=== PATIENT | female | born 1960 | race African-American/Black ===

== ENCOUNTER 2017-01-08 14:56 | Emergency (ER) | payer OTHER ==
[~2017-01-08] VITALS: Ht 162.6 cm; Wt 81.0 kg
[~2017-01-08 14:56] MED LIST: FERR325T PO; PROT40TA PO; VITA100018 PO
[2017-01-08 15:02] VITALS: BP 168/78; PULSE 97; RESP 18; TEMP 98.7; O2SAT 98
--- NOTE | 2017-01-08 15:51 | PD ---
HPI Chief Complaint: Pain: Acute or Chronic Time Seen by Provider: 15:50 Travel History International Travel<30 days: No Contact w/Intl Traveler<30days: No Traveled to known affect area: No History of Present Illness HPI 56-year-old female with history of diabetes presents to the emergency department for evaluation of left neck pain that began this morning. Patient states that she was sitting in confucianism and turn her neck to the left to speak to her daughter when she had a sudden sharp pain in the left side of her neck. States that she has had this same pain in the neck since this morning. The pain is aggravated with movement. States she is unable to rotate her head to the left due to the pain. She has not taken anything for her symptoms so far. Denies any injury or trauma to her neck. Denies any numbness or tingling, weakness, headache, lightheadedness or dizziness, chest pain, shortness breath. No other complaints. PFSH Past Medical History Anemia: Yes Arthritis: Yes Heart Rhythm Problems: No Cancer: No Cardiac Catheterization: No Cardiovascular Problems: No High Cholesterol: Yes (denies) Congestive Heart Failure: No Diabetes: Yes Diminished Hearing: No GERD: Yes Hepatitis: No Hiatal Hernia: No Hypertension: No Musculoskeletal: Yes (RT KNEE ARTHROSCOPIC SURGERY 2004) Neurologic: No Respiratory: No Immunizations Current: Yes Myocardial Infarction: No Thyroid Disease: No Ectopic : Yes Tubal Ligation: Yes (1976-REVERSAL 1987) Past Surgical History Abdominal Surgery: No Cardiac Surgery: No Coronary Artery Bypass Graft: No Ear Surgery: No Endocrine Surgery: No Eye Surgery: No Genitourinary Surgery: No Gynecologic Surgery: Yes (TUBAL LIGATION AND REVERSAL, 3 MISCARRIAGES) Neurologic Surgery: No Oral Surgery: No Pacemaker: No Thoracic Surgery: No Other Surgery: Yes Social History Alcohol Use: No Tobacco Use: No Substance Use: No Allergies-Medications (Allergen,Severity, Reaction): Coded Allergies: Aspirin (Verified Adverse Reaction, Severe, STOMACH PAIN, 05/27/16) Compazine (Verified Adverse Reaction, Severe, MUSCLE SPASMS, 05/27/16) Darvocet-N 100 (Verified Adverse Reaction, Severe, STOMACH PAINS, 05/27/16) Erythromycin (Verified Adverse Reaction, Severe, STOMACH PAIN, 05/27/16) Tetracycline (Verified Adverse Reaction, Severe, STOMACHE PAINS, 7/1/16) Uncoded Allergies: pain medication (Allergy, Severe, suicidal ideation, 10/31/12) iv pain medication Reported Meds & Prescriptions Reported Meds & Active Scripts Active Protonix (Pantoprazole Sodium) 40 Mg Tabdr 40 Mg PO DAILY 30 Days Reported Vitamin D (Cholecalciferol) 1,000 Unit Tab 1,000 Unit PO WEEKLY Iron (Ferrous Sulfate) 325 Mg Tab 325 Mg PO TID Review of Systems Except as stated in HPI: all other systems reviewed are Neg Physical Exam Narrative GENERAL: Well-nourished and well-developed pleasant female patient in no acute distress. SKIN: Warm and dry. HEAD: Normocephalic and atraumatic. EYES: No injection, drainage, or hyphema noted. PERRLA. EOMI. ENT: No nasal drainage noted. Oropharynx is clear. NECK: Supple and the trachea is midline. The left sternocleidomastoid muscle is tight and tender to palpation. Patient reports unable to rotate her head to the left due to pain in this muscle. No midline cervical spine tenderness. CARDIOVASCULAR: Regular rate and rhythm. RESPIRATORY: Breath sounds are equal bilaterally with no accessory muscle use, wheezing, rhonchi, or crackles. MUSCULOSKELETAL: No obvious deformities, swelling, cyanosis, or ecchymosis is present throughout the upper and lower extremities. Patient has full range of motion without any signs of neurovascular compromise. Strength 5/5 upper and lower extremities and equal bilaterally. NEUROLOGICAL: Awake, alert, and oriented. Normal speech and gait. Cranial nerves are grossly intact. Data Data Last Documented VS Vital Signs Date Time Temp Pulse Resp B/P Pulse Ox O2 Delivery O2 Flow Rate FiO2 01/08/17 15:02 98.7 97 18 168/78 98 Room Air Orders Diazepam (Valium) (01/08/17 16:00) Ibuprofen (Motrin) (01/08/17 16:00) Splint Or Brace Apply/Monitor (01/08/17 15:50) Collar Soft Cervical (01/08/17 ) MDM Medical Decision Making Medical Screen Exam Complete: Yes Emergency Medical Condition: Yes Differential Diagnosis Torticollis versus cervical strain versus muscle spasm Narrative Course 56-year-old female presents to the emergency department for evaluation of left- sided neck pain. Patient is afebrile, vital signs are stable. She has torticollis and is experiencing a muscle spasm of the left sternocleidomastoid muscle. Discussed with the patient supportive care for her symptoms. She is concerned as she has a history of adverse reactions to medications and therefore she does not like to take medications. We'll give the patient a one- time dose of Valium 5 mg orally here in the ED to alleviate her muscle spasm and will observe her here after receiving the medicine to evaluate for any adverse reactions. She'll be discharged with ibuprofen and robaxin and instructions to apply warm compresses to the area. Diagnosis Primary Impression: Torticollis, acute Referrals: Primary Care Physician Patient Instructions: General Instructions, Spasmodic Torticollis (ED) Additional Instructions: Apply warm compresses to the area. Take medication as prescribed with food and a full glass of water. Follow-up with your Primary Care Physician. Return to the ED for any acute worsening of symptoms. Med/Other Pt SpecificInfo: Prescription(s) given Scripts Ibuprofen 800 Mg All282 Mg PO TID 7 Days Ref 0 Prov:Jovita Rodriguez MD 01/08/17 Methocarbamol (Robaxin)500 Mg Vgs647 Mg PO TID 5 Days Ref 0 Prov:Jovita Rodriguez MD 01/08/17 Disposition: 01 DISCHARGE HOME Condition: Stable Maria Elena Sims Jan 08, 2017 15:50
[2017-01-08] MEDS ORDERED: IBUPROFEN 800 MG TAB PO ONE (16:00)
[2017-01-08] MEDS ORDERED: DIAZEPAM 5 MG TAB PO ONE (16:00)
[2017-01-08] MEDS ORDERED: IBUP800T23 PO (16:39)
[2017-01-08] MEDS ORDERED: ROBA500T PO (16:39)
[2017-01-08] MEDS ORDERED: PROT40TA PO (17:13)
[2017-01-08] MEDS ORDERED: FERR325T PO (17:13)
[2017-01-08] MEDS ORDERED: D200CAP PO (17:14)
== END 2017-01-08 17:15 | disposition home or self-care (01) ==
LOC: NEPB 14:56
DX: M43.6 Torticollis (principal); D64.9 Anemia, unspecified; M19.90 Unspecified osteoarthritis, unspecified site; E11.9 Type 2 diabetes mellitus without complications; K21.9 Gastro-esophageal reflux disease without esophagitis
CPT/HCPCS: 99283; L0120

== ENCOUNTER 2017-04-08 00:16 | Emergency (ER) | payer OTHER ==
[~2017-04-08] VITALS: Ht 162.6 cm; Wt 90.0 kg
[~2017-04-08 00:16] MED LIST changes: +D200CAP PO; +IBUP800T23 PO; +ROBA500T PO
[2017-04-08 00:20] VITALS: BP 149/71; PULSE 97; RESP 15; TEMP 100; O2SAT 97
[2017-04-08] MEDS ORDERED: SODIUM CHLORIDE 0.9% FLUSH 10 ML FLUSH IV FLUSH PRN (00:45)
[2017-04-08] MEDS ORDERED: DIATRIZOATE MEGLUM/DIATRIZOATE SOD 9 ML CUP ONE (00:47)
--- NOTE | 2017-04-08 00:57 | PD ---
HPI Chief Complaint: Abdominal Pain Time Seen by Provider: 00:34 Travel History International Travel<30 days: No Contact w/Intl Traveler<30days: No Traveled to known affect area: No History of Present Illness HPI This is a 57-year-old female with a previous history of diverticulitis, who presents today with complaints of lower abdominal pain times one day. The patient denies any fevers although has a low-grade temperature here. She denies any chills but does state that she needs a lot of blankets. She denies any vomiting or nausea. She reports that her last bowel movement was normal. There is no dysuria, urgency. She does state she is urinating more than she normally does. There are no other complaints. PFSH Past Medical History Anemia: Yes Arthritis: Yes Heart Rhythm Problems: No Cancer: No Cardiac Catheterization: No Cardiovascular Problems: No High Cholesterol: Yes (denies) Congestive Heart Failure: No Diabetes: Yes (TYPE 2) Diminished Hearing: No GERD: Yes Hepatitis: No Hiatal Hernia: No Heparin Induced Thrombocytopen: No Hypertension: No Musculoskeletal: Yes (RT KNEE ARTHROSCOPIC SURGERY 2004) Neurologic: No Respiratory: No Immunizations Current: Yes Myocardial Infarction: No Thyroid Disease: No Ectopic : Yes Tubal Ligation: Yes (1976-REVERSAL 1987) Past Surgical History Abdominal Surgery: No Cardiac Surgery: No Coronary Artery Bypass Graft: No Ear Surgery: No Endocrine Surgery: No Eye Surgery: No Genitourinary Surgery: No Gynecologic Surgery: Yes (TUBAL LIGATION AND REVERSAL, 3 MISCARRIAGES) Neurologic Surgery: No Oral Surgery: No Pacemaker: No Thoracic Surgery: No Other Surgery: Yes Social History Alcohol Use: No Tobacco Use: No Substance Use: No Allergies-Medications (Allergen,Severity, Reaction): Coded Allergies: Parvin (Verified Allergy, Unknown, 04/08/17) Aspirin (Verified Adverse Reaction, Severe, STOMACH PAIN, 04/08/17) Compazine (Verified Adverse Reaction, Severe, MUSCLE SPASMS, 04/08/17) Darvocet-N 100 (Verified Adverse Reaction, Severe, STOMACH PAINS, 04/08/17) Erythromycin (Verified Adverse Reaction, Severe, STOMACH PAIN, 04/08/17) Tetracycline (Verified Adverse Reaction, Severe, STOMACHE PAINS, 04/08/17) Uncoded Allergies: pain medication (Allergy, Severe, suicidal ideation, 10/31/12) iv pain medication Reported Meds & Prescriptions Reported Meds & Active Scripts Active Reported D2000 Ultra Strength (Cholecalciferol) 2,000 Unit Cap 1,000 Units PO WEEKLY Ferrous Sulfate 325 Mg Tab 325 Mg PO DAILY Protonix (Pantoprazole Sodium) 40 Mg Tab 40 Mg PO DAILY Review of Systems Except as stated in HPI: all other systems reviewed are Neg General / Constitutional: Positive: Chills (patient reports she has cold), No : Fever HENT: No: Headaches, Lightheadedness Cardiovascular: No: Chest Pain or Discomfort, Diaphoresis Respiratory: No: Cough, Shortness of Breath Gastrointestinal: Positive: Abdominal Pain (bilateral lower, left greater than right.), No: Vomiting, Constipation, Changes in Bowel Habits Genitourinary: Positive: Other (reports possibly urinating more than normally.) , No: Urgency, Dysuria, Discharge, Vaginal Bleeding Musculoskeletal: No: Weakness, Pain Neurologic: No: Weakness, Dizziness, Syncope, Headache Physical Exam Narrative GENERAL: Well-nourished, well-developed patient, in no acute respiratory distress. SKIN: Focused skin assessment warm/dry. HEAD: Normocephalic/atraumatic. EYES: No scleral icterus. No injection or drainage. NECK: Supple, trachea midline. CARDIOVASCULAR: Regular rate and rhythm without murmurs, gallops, or rubs. RESPIRATORY: Breath sounds equal bilaterally. No accessory muscle use. GASTROINTESTINAL: Abdomen soft, nondistended. She has tenderness to palpation in the left lower abdominal area. There is voluntary guarding. No rebound. She reports minimal tenderness in her right lower quadrant on deep palpation. MUSCULOSKELETAL: No cyanosis, or edema. NEUROLOGICAL: Awake and alert. Cranial nerves II through XII intact. Motor grossly within normal limits. Five out of 5 muscle strength in all muscle groups. Normal speech. Data Data Last Documented VS Vital Signs Date Time Temp Pulse Resp B/P Pulse Ox O2 Delivery O2 Flow Rate FiO2 04/08/17 02:00 87 16 163/74 96 04/08/17 00:20 100.0 Room Air Orders Complete Blood Count With Diff (04/08/17 00:35) Comprehensive Metabolic Panel (04/08/17 00:35) Lipase (04/08/17 00:35) Urinalysis - C+S If Indicated (04/08/17 00:35) Ct Abd/Pel W Iv Contrast(Rout) (04/08/17 00:35) Iv Access Insert/Monitor (04/08/17 00:35) Ecg Monitoring (04/08/17 00:35) Oximetry (04/08/17 00:35) Sodium Chloride 0.9% Flush (Ns Flush) (04/08/17 00:45) Oral Contrast - Adult (04/08/17 00:39) Diatrizoate Liq (Md Graham Liq) (04/08/17 00:47) Iohexol 350 Inj (Omnipaque 350 Inj) (04/08/17 02:07) Metronidazole (Flagyl) (04/08/17 03:00) Ciprofloxacin (Cipro) (04/08/17 03:00) Acetamin-Hydrocod 325-5 Mg (Blount 5-325 (04/08/17 03:00) Labs Laboratory Tests Test 04/08/17 00:50 White Blood Count 9.4 TH/MM3 Red Blood Count 4.59 MIL/MM3 Hemoglobin 12.6 GM/DL Hematocrit 39.5 % Mean Corpuscular Volume 85.9 FL Mean Corpuscular Hemoglobin 27.5 PG Mean Corpuscular Hemoglobin 32.0 % Concent Red Cell Distribution Width 14.2 % Platelet Count 297 TH/MM3 Mean Platelet Volume 8.1 FL Neutrophils (%) (Auto) 70.0 % Lymphocytes (%) (Auto) 20.2 % Monocytes (%) (Auto) 8.5 % Eosinophils (%) (Auto) 1.1 % Basophils (%) (Auto) 0.2 % Neutrophils # (Auto) 6.6 TH/MM3 Lymphocytes # (Auto) 1.9 TH/MM3 Monocytes # (Auto) 0.8 TH/MM3 Eosinophils # (Auto) 0.1 TH/MM3 Basophils # (Auto) 0.0 TH/MM3 CBC Comment DIFF FINAL Differential Comment Urine Color YELLOW Urine Turbidity CLEAR Urine pH 7.0 Urine Specific [place] 1.019 Urine Protein NEG mg/dL Urine Glucose (UA) NEG mg/dL Urine Ketones NEG mg/dL Urine Occult Blood NEG Urine Nitrite NEG Urine Bilirubin NEG Urine Urobilinogen LESS THAN 2.0 MG/DL Urine Leukocyte Esterase NEG Urine RBC 2 /hpf Urine WBC 1 /hpf Urine Mucus FEW /lpf Microscopic Urinalysis Comment CULT NOT INDICATED Sodium Level 142 MEQ/L Potassium Level 3.7 MEQ/L Chloride Level 105 MEQ/L Carbon Dioxide Level 28.6 MEQ/L Anion Gap 8 MEQ/L Blood Urea Nitrogen 14 MG/DL Creatinine 0.93 MG/DL Estimat Glomerular Filtration 75 ML/MIN Rate Random Glucose 133 MG/DL Calcium Level 8.7 MG/DL Total Bilirubin 0.5 MG/DL Aspartate Amino Transf 19 U/L (AST/SGOT) Alanine Aminotransferase 18 U/L (ALT/SGPT) Alkaline Phosphatase 97 U/L Total Protein 7.6 GM/DL Albumin 3.7 GM/DL Lipase 172 U/L MDM Medical Decision Making Medical Screen Exam Complete: Yes Emergency Medical Condition: Yes Differential Diagnosis Diverticulitis versus cystitis versus pyelonephritis Narrative Course 57-year-old female presents with abdominal pain times one day. Patient denies any fevers but does state that she's felt cold at times. CT scan shows evidence of diverticulitis. This is in the same area that she had previous diverticulitis. I discussed with the patient that we'll start her on Cipro and Flagyl. She is also given a prescription for Lortab for pain. She does see Dr. Zacarias, GI doctor, who we will recommend she see her for follow up. She is instructed to return if she does any worsening pain, fevers chills, nausea vomiting diarrhea, or any other reason the concerns her. Diagnosis Primary Impression: Diverticulitis large intestine w/o perforation or abscess w/bleeding Additional Impression: History of diabetes mellitus Patient Instructions: Narcotic given in the ED Additional Instructions: Return if feeling worse. Follow up with primary care doctor and GI physician. Med/Other Pt SpecificInfo: Prescription(s) given Scripts Hydrocodone-Acetaminophen (Lortab)5-325 Mg Tab1 Tab PO Q6H PRN (PAIN) #15 TAB Ref 0 Prov:Michael Silvestre MD 04/08/17 Metronidazole (Flagyl)500 Mg Qpw625 Mg PO TID #30 TAB Ref 0 Prov:Michael Silvestre MD 04/08/17 Ciprofloxacin (Cipro)500 Mg Uxa828 Mg PO BID #20 TAB Ref 0 Prov:Michael Silvestre MD 04/08/17 Disposition: 01 DISCHARGE HOME Condition: Stable Michael Silvestre MD April 08, 2017 00:56
[2017-04-08 01:10] LABS: BLOOD, URINE NEG (NEG); COMMENT (UR) CULT NOT INDICATED; CULTURE IF INDICATED CULT NOT INDICATED; GLUCOSE,URINE NEG (NEG); KETONE, URINE NEG (NEG); MUCUS URINE FEW /lpf (OCC); NITRITE,URINE NEG (NEG); URINE COLOR YELLOW (YELLW/STRAW)
[2017-04-08 01:28] LABS: AUTOMATED NEUTROPHIL # 6.6 TH/MM3 (1.8-7.7); BASOPHIL % 0.2 % (0.0-2.0); EOSINOPHIL # 0.1 TH/MM3 (0-0.4); EOSINOPHIL % 1.1 % (0.0-4.0); HEMATOCRIT 39.5 % (35.0-46.0); HEMO FLAGS DIFF FINAL; LYMPH % 20.2 % (9.0-44.0); LYMPHOCYTE # 1.9 TH/MM3 (1.0-4.8); MEAN CELL VOLUME 85.9 FL (80.0-100.0); MEAN CORPUSCULAR HEMOGLOBIN 27.5 PG (27.0-34.0); MONO % 8.5 % (0.0-8.0); PLATELET COUNT 297 TH/MM3 (150-450); RED BLOOD COUNT 4.59 MIL/MM3 (4.00-5.30); RED CELL DISTRIBUTION WIDTH 14.2 % (11.6-17.2); WHITE BLOOD COUNT 9.4 TH/MM3 (4.0-11.0)
[2017-04-08 01:35] LABS: ALKALINE PHOSPHATASE 97 U/L (45-117); TOTAL BILIRUBIN ADULT 0.5 MG/DL (0.2-1.0)
[2017-04-08 01:36] LABS: ALT (GPT) 18 U/L (10-53); ANION GAP 8 MEQ/L (5-15); AST (GOT) 19 U/L (15-37); BICARBONATE 28.6 MEQ/L (21.0-32.0); BLOOD UREA NITROGEN 14 MG/DL (7-18); CHLORIDE 105 MEQ/L (98-107); GLOMERULAR FILTRATION RATE 75 ML/MIN (>89); POTASSIUM 3.7 MEQ/L (3.5-5.1); SODIUM (NA) 142 MEQ/L (136-145)
[2017-04-08 02:00] VITALS: BP 163/74; PULSE 87; RESP 16; O2SAT 96
[2017-04-08] MEDS ORDERED: IOHEXOL 350 MG/ML 10 ML VIAL (for RAD DIAG) IV ONE (02:07)
--- NOTE | 2017-04-08 02:27 | RADRPT ---
EXAM DATE/TIME: 04/08/2017 02:06 CORRECTION Corrected on: April 08, 2017; [facility] COMPARISON: CT ABDOMEN & PELVIS W CONTRAST, November 28, 2015, 7:27. INDICATIONS : Abdominal pain. IV CONTRAST: 100 cc Omnipaque 350 (iohexol) IV ORAL CONTRAST: Prescribed oral contrast ingested. RADIATION DOSE: 11.96 CTDIvol (mGy) MEDICAL HISTORY : Diverticulitis. Diabetes mellitus type 2. Gastroesophageal reflux disease. SURGICAL HISTORY : None. ENCOUNTER: Initial ACUITY: 1 day PAIN SCALE: 10/10 LOCATION: abdomen TECHNIQUE: Volumetric scanning of the abdomen and pelvis was performed. Using automated exposure control and ad justment of the mA and/or kV according to patient size, radiation dose was kept as low as reasonably achievable to obtain optimal diagnostic quality images. FINDINGS: LOWER LUNGS: The visualized lower lungs are clear. LIVER: Homogeneous density. Stable hepatic cyst measuring 3 cm in the left lobe. There is no dilation of th e biliary tree. No calcified gallstones. SPLEEN: Normal size without lesion. PANCREAS: Within normal limits. KIDNEYS: Normal in size and shape. There is no mass, stone or hydronephrosis. ADRENAL GLANDS: Stable left adrenal mass measuring approximately 2.4 cm. Right adrenal gland is stable and unremarkab le. VASCULAR: There is no aortic aneurysm. BOWEL/MESENTERY: Bowel gas pattern is within normal limits. There is focal inflammatory changes involving the distal d escending colon in the left lower quadrant characteristic of focal diverticulitis. No free fluid or l oculated fluid collections are seen to suggest an abscess. This finding was present on the prior exam ination. No evidence of free air. No free fluid. ABDOMINAL WALL: Within normal limits. RETROPERITONEUM: There is no lymphadenopathy. BLADDER: No wall thickening or mass. REPRODUCTIVE: Bulky fibroid uterus. Stable. INGUINAL: There is no lymphadenopathy or hernia. MUSCULOSKELETAL: Within normal limits for patient age. CONCLUSION: 1. There is focal inflammatory changes involving the distal descending colon and the left lower quadr ant characteristic for focal diverticulitis. No free air or abscess is seen at this time. This is the same location as the prior examination from 11/28/2015. Consider direct visualization by colonoscopy a fter appropriate medical therapy to exclude an underlying mucosal lesion. 2. Stable left hepatic cyst. 3. Stable left adrenal mass. 4. Stable bulky fibroid uterus. Kenyon Ho MD on April 08, 2017 at 2:20 Board Certified Radiologist. This report was verified electronically. Kenyon Ho MD on April 08, 2017 at 2:28 Board Certified Radiologist. This report was verified electronically.
[2017-04-08] MEDS ORDERED: CIPR-9 PO (02:52)
[2017-04-08] MEDS ORDERED: METR-1 PO (02:52)
[2017-04-08] MEDS ORDERED: HYDR-3533 PO (02:52)
[2017-04-08] MEDS ORDERED: ACETAMINOPHEN/HYDROcodone 325 MG/5 MG TAB PO ONE (03:00)
[2017-04-08] MEDS ORDERED: CIPROFLOXACIN 500 MG TAB PO ONE (03:00)
[2017-04-08] MEDS ORDERED: metroNIDAZOLE 500 MG TAB PO ONE (03:00)
== END 2017-04-08 03:30 | disposition home or self-care (01) ==
LOC: NEPE 00:16
DX: K57.32 Diverticulitis of large intestine without perforation or abscess without bleeding (principal); E11.9 Type 2 diabetes mellitus without complications; D64.9 Anemia, unspecified
CPT/HCPCS: 74177; 80053; 81001; 83690; 85025; 99284; Q9963; Q9967

== ENCOUNTER 2017-05-31 23:26 | Emergency (ER) | payer OTHER ==
[~2017-05-31] VITALS: Ht 162.6 cm; Wt 89.0 kg
[~2017-05-31 23:26] MED LIST changes: +CIPR-9 PO; +HYDR-3533 PO; -IBUP800T23 PO; +METR-1 PO; -ROBA500T PO; -VITA100018 PO
[2017-05-31 23:28] VITALS: BP 158/84; PULSE 86; RESP 16; TEMP 98.5; O2SAT 99
[2017-06-01 02:19] VITALS: BP 190/90; PULSE 81; RESP 18; O2SAT 100
[2017-06-01] MEDS ORDERED: VITA100064 PO (02:23)
[2017-06-01 02:24] VITALS: BP 166/73
[2017-06-01] MEDS ORDERED: SACC1CAP3 PO (02:24)
[2017-06-01] MEDS ORDERED: LIDOCAINE VISCOUS 2% SOLN 15 ML UDC PO ONE (02:45)
[2017-06-01] MEDS ORDERED: ONDANSETRON HCL 4 MG/2 ML VIAL IVP ONE (02:45)
[2017-06-01] MEDS ORDERED: SODIUM CHLORIDE 0.9% FLUSH 10 ML FLUSH IV FLUSH PRN (02:45)
[2017-06-01] MEDS ORDERED: ALUMINUM/MAGNESIUM/SIMETH 30 ML CUP PO ONE (02:45)
[2017-06-01 02:52] VITALS: O2SAT 98
[2017-06-01 03:00] LABS: AUTOMATED NEUTROPHIL # 5.2 TH/MM3 (1.8-7.7); BASOPHIL % 0.2 % (0.0-2.0); EOSINOPHIL % 0.6 % (0.0-4.0); HEMATOCRIT 43.1 % (35.0-46.0); HEMO FLAGS DIFF FINAL; LYMPH % 23.7 % (9.0-44.0); LYMPHOCYTE # 1.8 TH/MM3 (1.0-4.8); MEAN CELL VOLUME 85.6 FL (80.0-100.0); MEAN CORPUSCULAR HEMOGLOBIN 27.8 PG (27.0-34.0); MEAN CORPUSCULAR HGB CONC 32.4 % (32.0-36.0); MONO % 6.6 % (0.0-8.0); NEUT % 68.9 % (16.0-70.0); PLATELET COUNT 339 TH/MM3 (150-450); RED BLOOD COUNT 5.04 MIL/MM3 (4.00-5.30); RED CELL DISTRIBUTION WIDTH 13.8 % (11.6-17.2); WHITE BLOOD COUNT 7.6 TH/MM3 (4.0-11.0)
[2017-06-01 03:14] LABS: APTT (PATIENT) 28.7 SEC (24.3-30.1); PROTHROMBIN TIME - PATIENT 10.7 SEC (9.8-11.6)
--- NOTE | 2017-06-01 03:25 | RADRPT ---
EXAM DATE/TIME: 06/01/2017 02:37 [facility] COMPARISON: CHEST SINGLE AP, October 26, 2015, 3:00. INDICATIONS : Lower chest discomfort. MEDICAL HISTORY : Diabetes mellitus type II. SURGICAL HISTORY : None. ENCOUNTER: Initial ACUITY: 1 day PAIN SCORE: 2/10 LOCATION: Bilateral lower chest FINDINGS: A single view of the chest demonstrates the lungs to be symmetrically aerated without evidence of mas s, infiltrate or effusion. The cardiomediastinal contours are unremarkable. Osseous structures are intact. CONCLUSION: No acute disease. Yair Carrington MD on June 01, 2017 at 3:23 Board Certified Radiologist. This report was verified electronically.
[2017-06-01 03:26] LABS: ALT (GPT) 28 U/L (10-53); ANION GAP 8 MEQ/L (5-15); AST (GOT) 21 U/L (15-37); BICARBONATE 31.3 MEQ/L (21.0-32.0); BLOOD UREA NITROGEN 7 MG/DL (7-18); CHLORIDE 104 MEQ/L (98-107); GLOMERULAR FILTRATION RATE 76 ML/MIN (>89); POTASSIUM 3.5 MEQ/L (3.5-5.1); SODIUM (NA) 143 MEQ/L (136-145)
[2017-06-01 03:29] LABS: ALKALINE PHOSPHATASE 103 U/L (45-117); TOTAL BILIRUBIN ADULT 0.9 MG/DL (0.2-1.0)
--- NOTE | 2017-06-01 04:37 | PD ---
HPI Chief Complaint: GI Complaint Time Seen by Provider: 02:22 Travel History International Travel<30 days: No Contact w/Intl Traveler<30days: No Traveled to known affect area: No History of Present Illness HPI This is a 57 year old female presents to the emergency department with a complaint of epigastric fullness and feeling like something is moving upwards into her chest. She had endoscopy and colonoscopy with esophageal dilation yesterday morning. She began having nausea and pain, called her physician home economics teacher and was told to take extra tums. When this didn't work she attempted to call again and couldn't get through so came to the ER. She states she had minimal blood streaking in the emesis. No sob, no chest pain, no fever, no diarrhea. PFSH Past Medical History Anemia: Yes Arthritis: Yes Heart Rhythm Problems: No Cancer: No Cardiac Catheterization: No Cardiovascular Problems: No High Cholesterol: Yes (denies) Congestive Heart Failure: No Diabetes: Yes (TYPE 2) Patient Takes Glucophage: No Diminished Hearing: No GERD: Yes Hepatitis: No Hiatal Hernia: No Heparin Induced Thrombocytopen: No Hypertension: No Medical other: Yes (GERD,ARTHRITIS, LOW BACK PAIN, ANEMIA) Musculoskeletal: Yes (RT KNEE ARTHROSCOPIC SURGERY 2004) Neurologic: No Respiratory: No Immunizations Current: Yes Myocardial Infarction: No Thyroid Disease: No Influenza Vaccination: No Ectopic : Yes Tubal Ligation: Yes (1976-REVERSAL 1987) Past Surgical History Abdominal Surgery: No Cardiac Surgery: No Coronary Artery Bypass Graft: No Ear Surgery: No Endocrine Surgery: No Eye Surgery: No Genitourinary Surgery: No Neurologic Surgery: No Oral Surgery: No Pacemaker: No Thoracic Surgery: No Other Surgery: Yes (ENDOSCOPY AND COLONOSCOPY 05/31/17) Family History Family Myocardial Infarction: Yes Social History Alcohol Use: No Tobacco Use: No Substance Use: No Allergies-Medications (Allergen,Severity, Reaction): Coded Allergies: Parvin (Verified Allergy, Unknown, 06/01/17) Aspirin (Verified Adverse Reaction, Severe, STOMACH PAIN, 06/01/17) Compazine (Verified Adverse Reaction, Severe, MUSCLE SPASMS, 06/01/17) Darvocet-N 100 (Verified Adverse Reaction, Severe, STOMACH PAINS, 06/01/17) Erythromycin (Verified Adverse Reaction, Severe, STOMACH PAIN, 06/01/17) Tetracycline (Verified Adverse Reaction, Severe, STOMACHE PAINS, 06/01/17) Uncoded Allergies: pain medication (Allergy, Severe, suicidal ideation, 10/31/12) iv pain medication Reported Meds & Prescriptions Reported Meds & Active Scripts Active Lidocaine Viscous Liq 2 % Liqd 5 Ml SWISH-SWAL QID PRN Sucralfate Liq (Sucralfate) 1 Gm/10 Ml Kiana 1 Gm PO TID 7 Days on empty stomach Reported Probiotic (Saccharomyces Boulardii) 250 Mg Cap 250 Mg PO ONCE Vitamin D (Cholecalciferol) 1,000 Unit Tab 1,000 Units PO DAILY Protonix (Pantoprazole Sodium) 40 Mg Tab 40 Mg PO DAILY Review of Systems Except as stated in HPI: all other systems reviewed are Neg Physical Exam Narrative GENERAL: WD/WN in nad SKIN: Warm and dry. HEAD: Atraumatic. Normocephalic. EYES: Pupils equal and round. No scleral icterus. No injection or drainage. ENT: No nasal bleeding or discharge. Mucous membranes pink and moist. NECK: Trachea midline. No JVD. CARDIOVASCULAR: Regular rate and rhythm. 2+ bilateral equal pulses in all four extremities, No MGR. RESPIRATORY: No accessory muscle use. Clear to auscultation. Breath sounds equal bilaterally. GASTROINTESTINAL: Abdomen soft, non-tender, nondistended. Hepatic and splenic margins not palpable. MUSCULOSKELETAL: Extremities without clubbing, cyanosis, or edema. No obvious deformities. NEUROLOGICAL: Awake and alert. No obvious cranial nerve deficits. Motor grossly within normal limits. Five out of 5 muscle strength in the arms and legs. Normal speech. PSYCHIATRIC: Appropriate mood and affect; insight and judgment normal. Data Data Last Documented VS Vital Signs Date Time Temp Pulse Resp B/P Pulse Ox O2 Delivery O2 Flow Rate FiO2 06/01/17 05:23 61 18 136/82 98 Room Air 05/31/17 23:28 98.5 Orders Complete Blood Count With Diff (06/01/17 02:37) Comprehensive Metabolic Panel (06/01/17 02:37) Prothrombin Time / Inr (Pt) (06/01/17 02:37) Act Partial Throm Time (Ptt) (06/01/17 02:37) Iv Access Insert/Monitor (06/01/17 02:37) Ecg Monitoring (06/01/17 02:37) Oximetry (06/01/17 02:37) Ondansetron Inj (Zofran Inj) (06/01/17 02:45) Sodium Chloride 0.9% Flush (Ns Flush) (06/01/17 02:45) Electrocardiogram (06/01/17 02:37) Al-Mag Hy-Si 40-40-4 Mg/Ml Liq (Mag-Al P (06/01/17 02:45) Lidocaine 2% Viscous (Xylocaine 2% Visco (06/01/17 02:45) Troponin I (06/01/17 02:37) Chest, Single Ap (06/01/17 ) Ct Abd/Pel W Iv Contrast(Rout) (06/01/17 ) Iohexol 350 Inj (Omnipaque 350 Inj) (06/01/17 04:39) Lidocaine 2% Viscous (Xylocaine 2% Visco (06/01/17 05:30) Labs Laboratory Tests Test 06/01/17 02:40 White Blood Count 7.6 TH/MM3 Red Blood Count 5.04 MIL/MM3 Hemoglobin 14.0 GM/DL Hematocrit 43.1 % Mean Corpuscular Volume 85.6 FL Mean Corpuscular Hemoglobin 27.8 PG Mean Corpuscular Hemoglobin 32.4 % Concent Red Cell Distribution Width 13.8 % Platelet Count 339 TH/MM3 Mean Platelet Volume 8.5 FL Neutrophils (%) (Auto) 68.9 % Lymphocytes (%) (Auto) 23.7 % Monocytes (%) (Auto) 6.6 % Eosinophils (%) (Auto) 0.6 % Basophils (%) (Auto) 0.2 % Neutrophils # (Auto) 5.2 TH/MM3 Lymphocytes # (Auto) 1.8 TH/MM3 Monocytes # (Auto) 0.5 TH/MM3 Eosinophils # (Auto) 0.0 TH/MM3 Basophils # (Auto) 0.0 TH/MM3 CBC Comment DIFF FINAL Differential Comment Prothrombin Time 10.7 SEC Prothromb Time International 1.0 RATIO Ratio Activated Partial 28.7 SEC Thromboplast Time Sodium Level 143 MEQ/L Potassium Level 3.5 MEQ/L Chloride Level 104 MEQ/L Carbon Dioxide Level 31.3 MEQ/L Anion Gap 8 MEQ/L Blood Urea Nitrogen 7 MG/DL Creatinine 0.92 MG/DL Estimat Glomerular Filtration 76 ML/MIN Rate Random Glucose 117 MG/DL Calcium Level 9.1 MG/DL Total Bilirubin 0.9 MG/DL Aspartate Amino Transf 21 U/L (AST/SGOT) Alanine Aminotransferase 28 U/L (ALT/SGPT) Alkaline Phosphatase 103 U/L Troponin I LESS THAN 0.02 NG/ML Total Protein 8.4 GM/DL Albumin 4.2 GM/DL [facility] Medical Decision Making Medical Screen Exam Complete: Yes Emergency Medical Condition: Yes Interpretation(s) EKG shows normal sinus rhythm left axis deviation, normal R-wave progression. No concerning ST segment changes. Intervals within normal limits. This is a borderline EKG. Differential Diagnosis Esophageal tear, bowel perforation, acute abdomen seems unlikely, esophagitis, normal post procedural period, anemia, ACS highly unlikely. Narrative Course This is a 57 year old female POD1 from endoscopy, colonoscopy and esophageal dilation. Reports to the er that she has been having nausea and vomiting and epigastric discomfort. initial workup negative. CT negative. Had one low volume emesis in ed with minimal blood streaking. Patient feeling better after GI cocktail but wearing off, placed on sucrafate, lidocaine jelly script. Instructions to follow up with GI doctor by phone today. Diagnosis Primary Impression: Epigastric discomfort Additional Instructions: Call Dr. Boston or Dr. Mcneill today for further instructions. Med/Other Pt SpecificInfo: Prescription(s) given Scripts Lidocaine Viscous Liq 2 % Liqd5 Ml SWISH-SWAL QID PRN (PAIN) #1 BOTTLE Ref 0 Prov:Terrence Jimenez MD 06/01/17 Sucralfate Liq 1 Gm/10 Ml Sus1 Gm PO TID 7 Days Ref 0 on empty stomach Prov:Terrence Jimenez MD 06/01/17 Disposition: 01 DISCHARGE HOME Condition: Stable Terrence Jimenez MD Jun 01, 2017 04:37
[2017-06-01] MEDS ORDERED: IOHEXOL 350 MG/ML 10 ML VIAL (for RAD DIAG) IV ONE (04:39)
--- NOTE | 2017-06-01 05:12 | RADRPT ---
EXAM DATE/TIME: 06/01/2017 04:25 [facility] COMPARISON: CT ABDOMEN & PELVIS W CONTRAST, April 08, 2017, 2:06. INDICATIONS : Upper abdominal pain post endoscopy and colonoscopy today. IV CONTRAST: 94 cc Omnipaque 350 (iohexol) IV ORAL CONTRAST: No oral contrast ingested. RADIATION DOSE: 12.14 CTDIvol (mGy) MEDICAL HISTORY : Diverticulitis. Diabetes mellitus type 2. Gastroesophageal reflux disease. SURGICAL HISTORY : None. ENCOUNTER: Initial ACUITY: 1 day PAIN SCALE: 8/10 LOCATION: Bilateral upper quadrant TECHNIQUE: Volumetric scanning of the abdomen and pelvis was performed. Using automated exposure control and ad justment of the mA and/or kV according to patient size, radiation dose was kept as low as reasonably achievable to obtain optimal diagnostic quality images. DICOM format image data is available electro nically for review and comparison. FINDINGS: LOWER LUNGS: The visualized lower lungs are clear. LIVER: Homogeneous density without lesion. There is no dilation of the biliary tree. No calcified gallston es. SPLEEN: Normal size without lesion. PANCREAS: Within normal limits. KIDNEYS: Normal in size and shape. There is no mass, stone or hydronephrosis. ADRENAL GLANDS: Stable left adrenal lesion. Right adrenal gland is normal. VASCULAR: There is no aortic aneurysm. BOWEL/MESENTERY: The stomach, small bowel, and colon demonstrate no acute abnormality. There is no free intraperitone al air or fluid. ABDOMINAL WALL: Within normal limits. RETROPERITONEUM: There is no lymphadenopathy. BLADDER: No wall thickening or mass. REPRODUCTIVE: Heterogeneous uterus. INGUINAL: There is no lymphadenopathy or hernia. MUSCULOSKELETAL: Within normal limits for patient age. CONCLUSION: 1. Diverticulosis without diverticulitis. 2. Heterogeneous uterus, stable. 3. Stable hepatic cysts. 4. Stable left adrenal lesion. Yair Carrington MD on June 01, 2017 at 5:08 Board Certified Radiologist. This report was verified electronically.
[2017-06-01 05:23] VITALS: BP 136/82; PULSE 61; RESP 18; O2SAT 98
[2017-06-01] MEDS ORDERED: LIDOCAINE VISCOUS 2% SOLN 15 ML UDC SWISH-SWAL ONE (05:30)
[2017-06-01] MEDS ORDERED: SUCR1S PO (05:45)
[2017-06-01] MEDS ORDERED: LIDO1SOL8 SWISH-SWAL (05:45)
--- NOTE | 2017-06-01 19:05 | EKG ---
Date Performed: 06/01/2017 Time Performed: 02:49:57 PTAGE: 57 years EKG: Sinus rhythm BORDERLINE LEFT AXIS DEVIATION Compared to previous tracing, there's been an increace in the anterio r T wave changes associated with the incomplete Right bundle branch block, but otherwise no significa nt change BORDERLINE ECG NO PREVIOUS TRACING DOCTOR: Hermelinda Torres Interpretating Date/Time 06/01/2017 19:03:16
== END 2017-06-01 06:43 | disposition home or self-care (01) ==
LOC: NEPE 23:26
DX: R10.13 Epigastric pain (principal); E11.9 Type 2 diabetes mellitus without complications; K21.9 Gastro-esophageal reflux disease without esophagitis
CPT/HCPCS: 71010; 74177; 80053; 84484; 85025; 85610; 85730; 93005; 96374; 99285; J2405; Q9967

== ENCOUNTER 2018-03-24 13:25 | Observation (INO) | payer OTHER ==
[2018-03-24] VITALS (7 sets, daily range): BP systolic 130–170; BP diastolic 68–83; PULSE 75–91; RESP 14–20; TEMP 98.1–98.8; O2SAT 97–100
[~2018-03-24] VITALS: Ht 162.6 cm; Wt 82.0 kg
[~2018-03-24 13:25] MED LIST changes: -CIPR-9 PO; -D200CAP PO; -FERR325T PO; -HYDR-3533 PO; +LIDO1SOL8 SWISH-SWAL; -METR-1 PO; +SACC1CAP3 PO; +SUCR1S PO; +VITA100064 PO
[2018-03-24] MEDS ORDERED: OMEGCAP PO (13:47)
--- NOTE | 2018-03-24 14:03 | PD ---
HPI Chief Complaint: Pain: Acute or Chronic Time Seen by Provider: 13:50 Travel History International Travel<30 days: No Contact w/Intl Traveler<30days: No Traveled to known affect area: No History of Present Illness HPI 58-year-old female complains of chest pain. Patient states that she has intermittent substernal chest pain since this morning. Patient states that the chest pain is substernal pressure without radiation. Patient states that the chest pain usually lasted about 2 minutes and resolved completely. Patient states that the chest pain is not associated with exertion. Patient states that she vomited once with a chest pain. Patient states that she has intermittent diaphoresis with chest pain. Patient denies any palpitation. Patient denies any coughing congestion fever chills. Patient states that she has history of reflux symptom has been taking omeprazole for that. Patient denies history of CAD. Patient denies history hypertension, diabetes, hyperlipidemia. Patient is a non-smoker. Patient denies family history of heart disease. Patient denies any chest pain now. PFSH Past Medical History Anemia: Yes Arthritis: Yes Heart Rhythm Problems: No Cancer: No Cardiac Catheterization: No Cardiovascular Problems: No High Cholesterol: Yes (denies) Congestive Heart Failure: No Diabetes: Yes Patient Takes Glucophage: No Diminished Hearing: No GERD: Yes Hepatitis: No Hiatal Hernia: No Heparin Induced Thrombocytopen: No Hypertension: No Medical other: Yes (GERD,ARTHRITIS, LOW BACK PAIN, ANEMIA) Musculoskeletal: Yes (RT KNEE ARTHROSCOPIC SURGERY 2004) Neurologic: No Respiratory: No Immunizations Current: Yes Myocardial Infarction: No Thyroid Disease: No ?: Not Ectopic : Yes Tubal Ligation: Yes (1976-REVERSAL 1987) Past Surgical History Abdominal Surgery: No Cardiac Surgery: No Coronary Artery Bypass Graft: No Ear Surgery: No Endocrine Surgery: No Eye Surgery: No Genitourinary Surgery: No Neurologic Surgery: No Oral Surgery: No Pacemaker: No Thoracic Surgery: No Other Surgery: Yes (ENDOSCOPY AND COLONOSCOPY 05/31/17) Family History Family Myocardial Infarction: Yes Social History Alcohol Use: No Tobacco Use: No Substance Use: No Allergies-Medications (Allergen,Severity, Reaction): Coded Allergies: fexofenadine (Unverified Allergy, Unknown, 03/24/18) acetaminophen (Unverified Adverse Reaction, Severe, STOMACH PAINS, 03/24/18 ) aspirin (Unverified Adverse Reaction, Severe, STOMACH PAIN, 03/24/18) doxycycline (Unverified Adverse Reaction, Severe, STOMACHE PAINS, 03/24/18) erythromycin base (Unverified Adverse Reaction, Severe, STOMACH PAIN, 03/24) minocycline (Unverified Adverse Reaction, Severe, STOMACHE PAINS, 03/24/18) prochlorperazine (Unverified Adverse Reaction, Severe, MUSCLE SPASMS, 03/24) propoxyphene (Unverified Adverse Reaction, Severe, STOMACH PAINS, 03/24/18) tigecycline (Unverified Adverse Reaction, Severe, STOMACHE PAINS, 03/24/18) Uncoded Allergies: pain medication (Allergy, Severe, suicidal ideation, 10/31/12) iv pain medication Reported Meds & Prescriptions Reported Meds & Active Scripts Active Reported [place]-3 Fish Oil/Vitamin (Fish Oil-Cholecalciferol) 1,000-1,000 Mg Cap 1 Cap PO DAILY Probiotic (Saccharomyces Boulardii) 250 Mg Cap 250 Mg PO ONCE Vitamin D3 (Cholecalciferol) 1,000 Unit Tab 1,000 Units PO DAILY Protonix (Pantoprazole Sodium) 40 Mg Tab 40 Mg PO DAILY Review of Systems General / Constitutional: No: Fever Eyes: No: Visual changes HENT: No: Headaches Cardiovascular: Positive: Chest Pain or Discomfort Respiratory: No: Shortness of Breath Gastrointestinal: No: Abdominal Pain Genitourinary: No: Dysuria Musculoskeletal: No: Pain Skin: No Rash Neurologic: No: Weakness Psychiatric: No: Depression Endocrine: No: Polydipsia Hematologic/Lymphatic: No: Easy Bruising Physical Exam Narrative GENERAL: Well-nourished, well-developed patient. SKIN: Focused skin assessment warm/dry. HEAD: Normocephalic. EYES: No scleral icterus. No injection or drainage. NECK: Supple, trachea midline. No JVD or lymphadenopathy. CARDIOVASCULAR: Regular rate and rhythm without murmurs, gallops, or rubs. RESPIRATORY: Breath sounds equal bilaterally. No accessory muscle use. GASTROINTESTINAL: Abdomen soft, non-tender, nondistended. MUSCULOSKELETAL: No cyanosis, or edema. BACK: Nontender without obvious deformity. No CVA tenderness. Neurologic exam normal. Data Data Last Documented VS Vital Signs Date Time Temp Pulse Resp B/P (MAP) Pulse Ox O2 Delivery O2 Flow Rate FiO2 03/24/18 13:38 80 18 148/78 (101) 100 Room Air 03/24/18 13:28 98.8 Orders Orders Electrocardiogram (03/24/18 13:59) Complete Blood Count With Diff (03/24/18 13:59) Comprehensive Metabolic Panel (03/24/18 13:59) Creatine Kinase (Cpk) (03/24/18 13:59) Troponin I (03/24/18 13:59) Prothrombin Time / Inr (Pt) (03/24/18 13:59) Act Partial Throm Time (Ptt) (03/24/18 13:59) Urinalysis - C+S If Indicated (03/24/18 13:59) Chest, Single Ap (03/24/18 13:59) Iv Access Insert/Monitor (03/24/18 13:59) Ecg Monitoring (03/24/18 13:59) Oximetry (03/24/18 13:59) Labs Laboratory Tests Test 03/24/18 14:15 White Blood Count 7.4 TH/MM3 Red Blood Count 4.51 MIL/MM3 Hemoglobin 13.0 GM/DL Hematocrit 39.7 % Mean Corpuscular Volume 88.0 FL Mean Corpuscular Hemoglobin 28.8 PG Mean Corpuscular Hemoglobin Concent 32.7 % Red Cell Distribution Width 14.1 % Platelet Count 337 TH/MM3 Mean Platelet Volume 7.6 FL Neutrophils (%) (Auto) 67.4 % Lymphocytes (%) (Auto) 23.7 % Monocytes (%) (Auto) 7.6 % Eosinophils (%) (Auto) 1.1 % Basophils (%) (Auto) 0.2 % Neutrophils # (Auto) 5.0 TH/MM3 Lymphocytes # (Auto) 1.8 TH/MM3 Monocytes # (Auto) 0.6 TH/MM3 Eosinophils # (Auto) 0.1 TH/MM3 Basophils # (Auto) 0.0 TH/MM3 CBC Comment DIFF FINAL Differential Comment Prothrombin Time 10.0 SEC Prothromb Time International Ratio 1.0 RATIO Activated Partial Thromboplast Time 25.0 SEC Urine Color LIGHT-YELLOW Urine Turbidity CLEAR Urine pH 6.0 Urine Specific [place] 1.004 Urine Protein NEG mg/dL Urine Glucose (UA) NEG mg/dL Urine Ketones NEG mg/dL Urine Occult Blood NEG Urine Nitrite NEG Urine Bilirubin NEG Urine Urobilinogen LESS THAN 2.0 MG/DL Urine Leukocyte Esterase NEG Urine RBC LESS THAN 1 /hpf Urine WBC 1 /hpf Urine Squamous Epithelial Cells 1 /hpf Urine Bacteria RARE /hpf Microscopic Urinalysis Comment CULT NOT INDICATED Blood Urea Nitrogen 11 MG/DL Creatinine 0.91 MG/DL Random Glucose 135 MG/DL Total Protein 7.4 GM/DL Albumin 3.4 GM/DL Calcium Level 8.4 MG/DL Alkaline Phosphatase 79 U/L Aspartate Amino Transf (AST/SGOT) 19 U/L Alanine Aminotransferase (ALT/SGPT) 26 U/L Total Bilirubin 0.5 MG/DL Sodium Level 142 MEQ/L Potassium Level 3.3 MEQ/L Chloride Level 104 MEQ/L Carbon Dioxide Level 29.4 MEQ/L Anion Gap 9 MEQ/L Estimat Glomerular Filtration Rate 76 ML/MIN Total Creatine Kinase 140 U/L Troponin I LESS THAN 0.02 NG/ML MDM Medical Decision Making Medical Screen Exam Complete: Yes Emergency Medical Condition: Yes Interpretation(s) 2:03 PM. EKG shows sinus rhythm nonspecific ST-T wave change. 1600 p.m. Last Impressions Chest X-Ray 03/24/18 1359 Signed Impressions: Service Date/Time: Saturday, March 24, 2018 14:25 - CONCLUSION: No acute disease. Tevin Gomez MD 1600 p.m. CBC within normal limits. Potassium 3.3. Cardiac enzymes are normal. Differential Diagnosis Differential diagnosis including musculoskeletal, angina, [place], PE, pneumothorax, GERD. Narrative Course 58-year-old female with chest pain. Diagnosis Primary Impression: CHEST PAIN, UNSPECIFIED Saul Nettles MD Mar 24, 2018 14:03
--- NOTE | 2018-03-24 15:04 | RADRPT ---
EXAM DATE/TIME: 03/24/2018 14:25 [facility] COMPARISON: CHEST SINGLE AP, June 01, 2017, 2:37. INDICATIONS : Chest pain. MEDICAL HISTORY : Acid reflux.Diverticulitis. Diabetes mellitus type 2. SURGICAL HISTORY : None. ENCOUNTER: Initial ACUITY: 1 day PAIN SCORE: 0/10 LOCATION: Bilateral chest FINDINGS: A single view of the chest demonstrates the lungs to be symmetrically aerated without evidence of mas s, infiltrate or effusion. The cardiomediastinal contours are unremarkable. Osseous structures are intact. CONCLUSION: No acute disease. Tevin Gomez MD on March 24, 2018 at 15:01 Board Certified Radiologist. This report was verified electronically.
[2018-03-24 15:20] LABS: BASOPHIL % 0.2 % (0.0-2.0); EOSINOPHIL # 0.1 TH/MM3 (0-0.4); EOSINOPHIL % 1.1 % (0.0-4.0); HEMATOCRIT 39.7 % (35.0-46.0); LYMPH % 23.7 % (9.0-44.0); LYMPHOCYTE # 1.8 TH/MM3 (1.0-4.8); MEAN CORPUSCULAR HEMOGLOBIN 28.8 PG (27.0-34.0); MEAN CORPUSCULAR HGB CONC 32.7 % (32.0-36.0); MEAN PLATELET VOLUME 7.6 FL (7.0-11.0); MONO % 7.6 % (0.0-8.0); MONOCYTE # 0.6 TH/MM3 (0-0.9); NEUT % 67.4 % (16.0-70.0); PLATELET COUNT 337 TH/MM3 (150-450); RED BLOOD COUNT 4.51 MIL/MM3 (4.00-5.30); RED CELL DISTRIBUTION WIDTH 14.1 % (11.6-17.2); WHITE BLOOD COUNT 7.4 TH/MM3 (4.0-11.0)
[2018-03-24 15:23] LABS: BACTERIA, URINE RARE /hpf; BILIRUBIN, URINE NEG (NEG); BLOOD, URINE NEG (NEG); GLUCOSE,URINE NEG (NEG); KETONE, URINE NEG (NEG); NITRITE,URINE NEG (NEG); SQUAMOUS EPITHELIAL CELL URINE 1 /hpf (0-5); URINE COLOR LIGHT-YELLOW (YELLW/STRAW); URINE LEUKOCYTE ESTERASE NEG (NEG)
[2018-03-24 15:46] LABS: ALKALINE PHOSPHATASE 79 U/L (45-117); TOTAL BILIRUBIN ADULT 0.5 MG/DL (0.2-1.0); TOTAL PROTEIN 7.4 GM/DL (6.4-8.2); TROPONIN I LESS THAN 0.02 NG/ML (0.02-0.05)
[2018-03-24 15:47] LABS: ALBUMIN 3.4 GM/DL (3.4-5.0); ALT (GPT) 26 U/L (10-53); AST (GOT) 19 U/L (15-37); BICARBONATE 29.4 MEQ/L (21.0-32.0); BLOOD UREA NITROGEN 11 MG/DL (7-18); CALCIUM 8.4 MG/DL (8.5-10.1); CHLORIDE 104 MEQ/L (98-107); CREATININE 0.91 MG/DL (0.50-1.00); GLOMERULAR FILTRATION RATE 76 ML/MIN (>89); GLUCOSE,RANDOM 135 MG/DL (74-106); SODIUM (NA) 142 MEQ/L (136-145)
[2018-03-24] MEDS ORDERED: POTASSIUM CHLORIDE 20 MEQ CONTROLLED RELEASE TAB PO ONE (16:15)
[2018-03-24] MEDS ORDERED: ONDANSETRON HCL 4 MG/2 ML VIAL IV PUSH PRN (16:45)
[2018-03-24] MEDS ORDERED: SODIUM CHLORIDE 0.9% FLUSH 10 ML FLUSH IV FLUSH PRN (16:45)
--- NOTE | 2018-03-24 16:58 | HHI.HP ---
[facility] Primary Care Physician Vick Spears MD Chief Complaint Chest pain History of Present Illness This is a 58-year-old female that presents to ED via private vehicle with her with a complaint of waking up at 630 this morning with a chest discomfort. When asked to describe the pain she states I do not know, if the kind of pain that hurts really bad." States lasted less than 1 minute. It was substernal. She initially was not nauseated but later in the day had an episode with nonbloody non-bilious emesis. She had 5 or 6 more episodes of the same discomfort also lasting less than 1. Nothing in particular seemed to bring it on. She has GERD and states this is similar type of discomfort that she would get with GERD. She admits not taking Prilosec regularly. But she did take one today and states it did not help. She states that the ER physician explained to her that Prilosec does not work that way. She should be taking it regularly. She understands that now. Denies recent illness. Denies fevers or chills. Patient states that she has had a stress test in the past. 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 States she has history of type 2 diabetes but has not been prescribed medication. Review of Systems General: Patient denies fevers, chills, and recent travel. HEENT: Patient denies headache, sore throat, difficulty swallowing. Cardiovascular: Has the chest discomfort as mentioned above. Denies sensation of heart beating rapidly or irregularly. No syncope. Denies diaphoresis. Respiratory: Denies shortness of breath or inspirational chest discomfort. Denies coughing wheezing or hemoptysis. GI: Had an episode of emesis little while ago. Other than that she had no nausea. Patient denies diarrhea, abdominal pain, bloody stools. Musculoskeletal: Chronic back pain. 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 Patient denies joint pain or edema. Denies calf pain or edema. Neurovascular: Patient denies numbness, tingling, weakness in extremities. Denies headache. Endocrine: Denies polyuria and polydipsia. Hematologic: Denies easy bruising. Skin: Denies rash or itching. Past Family Social History Allergies: Coded Allergies: fexofenadine (Unverified Allergy, Unknown, 03/24/18) acetaminophen (Unverified Adverse Reaction, Severe, STOMACH PAINS, 03/24/18 ) aspirin (Unverified Adverse Reaction, Severe, STOMACH PAIN, 03/24/18) doxycycline (Unverified Adverse Reaction, Severe, STOMACHE PAINS, 03/24/18) erythromycin base (Unverified Adverse Reaction, Severe, STOMACH PAIN, 03/24) minocycline (Unverified Adverse Reaction, Severe, STOMACHE PAINS, 03/24/18) prochlorperazine (Unverified Adverse Reaction, Severe, MUSCLE SPASMS, 03/24) propoxyphene (Unverified Adverse Reaction, Severe, STOMACH PAINS, 03/24/18) tigecycline (Unverified Adverse Reaction, Severe, STOMACHE PAINS, 03/24/18) Uncoded Allergies: pain medication (Allergy, Severe, suicidal ideation, 10/31/12) iv pain medication Past Medical History Diabetes type 2 however she states the doctor has not prescribed medication. 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 GERD. Denies hypertension, hyperlipidemia, and CAD. Past Surgical History Tubal ligation and reversal of tubal ligation. Arthroscopy of right knee. Reported Medications Reported Meds & Active Scripts Active Reported [place]-3 Fish Oil/Vitamin (Fish Oil-Cholecalciferol) 1,000-1,000 Mg Cap 1 Cap PO DAILY Probiotic (Saccharomyces Boulardii) 250 Mg Cap 250 Mg PO ONCE Vitamin D3 (Cholecalciferol) 1,000 Unit Tab 1,000 Units PO DAILY Protonix (Pantoprazole Sodium) 40 Mg Tab 40 Mg PO DAILY Active Ordered Medications Current Medications Medications (Trade) Dose Ordered Sig/Tyra Route Start Time Stop Time Status Last Admin (NS Flush) 2 ml UNSCH PRN IV FLUSH 03/24/18 16:45 UNV (NS Flush) 2 ml BID IV FLUSH 03/24/18 21:00 UNV (Zofran Inj) 4 mg Q6H PRN IV PUSH 03/24/18 16:45 UNV Family History Denies family history of CAD. Social History Lifetime non-smoker. Denies alcohol or illicit drug use. . Physical Exam Vital Signs Vital Signs Date Time Temp Pulse Resp B/P (MAP) Pulse Ox O2 Delivery O2 Flow Rate FiO2 03/24/18 16:32 98 Room Air 03/24/18 16:10 75 14 146/68 (94) 100 Room Air 03/24/18 13:38 80 18 148/78 (101) 100 Room Air 03/24/18 13:28 98.8 91 20 170/83 (112) 100 Physical Exam GENERAL: This is a well-nourished, well-developed patient, in no apparent distress. Patient speaks in clear complete sentences. Patient is pleasant. HEENT: Head is atraumatic and normocephalic. Neck is supple without lymphadenopathy and trachea is midline. No JVD or carotid bruits. CARDIOVASCULAR: Regular rate and rhythm without murmurs, gallops, or rubs. RESPIRATORY: Clear to auscultation. Breath sounds equal bilaterally. No wheezes , rales, or rhonchi. Chest wall is tender but is not similar to the discomfort she has been having. No use of accessory muscles. GASTROINTESTINAL: Abdomen is nontender, nondistended. Abdomen soft. No obvious pulsatile mass or bruit. No CVA tenderness. Strong femoral pulses bilaterally. Normal bowel sounds in all quadrants. MUSCULOSKELETAL: Patient is moving upper and lower extremities freely. Left foot is in a walking boot. No calf tenderness or edema, no Homans sign. Strong pulses in upper and lower extremities. NEUROLOGICAL: Patient is alert and oriented. Cranial nerves 2-12 are grossly intact. No focal deficits and speech is clear. SKIN: No rash and turgor is normal. Laboratory Laboratory Tests Test 03/24/18 14:15 White Blood Count 7.4 Red Blood Count 4.51 Hemoglobin 13.0 Hematocrit 39.7 Mean Corpuscular Volume 88.0 Mean Corpuscular Hemoglobin 28.8 Mean Corpuscular Hemoglobin Concent 32.7 Red Cell Distribution Width 14.1 Platelet Count 337 Mean Platelet Volume 7.6 Neutrophils (%) (Auto) 67.4 Lymphocytes (%) (Auto) 23.7 Monocytes (%) (Auto) 7.6 Eosinophils (%) (Auto) 1.1 Basophils (%) (Auto) 0.2 Neutrophils # (Auto) 5.0 Lymphocytes # (Auto) 1.8 Monocytes # (Auto) 0.6 Eosinophils # (Auto) 0.1 Basophils # (Auto) 0.0 CBC Comment DIFF FINAL Differential Comment Prothrombin Time 10.0 Prothromb Time International Ratio 1.0 Activated Partial Thromboplast Time 25.0 Urine Color LIGHT-YELLOW Urine Turbidity CLEAR Urine pH 6.0 Urine Specific [place] 1.004 Urine Protein NEG Urine Glucose (UA) NEG Urine Ketones NEG Urine Occult Blood NEG Urine Nitrite NEG Urine Bilirubin NEG Urine Urobilinogen LESS THAN 2.0 Urine Leukocyte Esterase NEG Urine RBC LESS THAN 1 Urine WBC 1 Urine Squamous Epithelial Cells 1 Urine Bacteria RARE Microscopic Urinalysis Comment CULT NOT INDICATED Blood Urea Nitrogen 11 Creatinine 0.91 Random Glucose 135 Total Protein 7.4 Albumin 3.4 Calcium Level 8.4 Alkaline Phosphatase 79 Aspartate Amino Transf (AST/SGOT) 19 Alanine Aminotransferase (ALT/SGPT) 26 Total Bilirubin 0.5 Sodium Level 142 Potassium Level 3.3 Chloride Level 104 Carbon Dioxide Level 29.4 Anion Gap 9 Estimat Glomerular Filtration Rate 76 Total Creatine Kinase 140 Troponin I LESS THAN 0.02 Result Diagram: 03/24/18 1415 03/24/18 1415 Imaging Last 48 hours Impressions Chest X-Ray 03/24/18 1359 Signed Impressions: Service Date/Time: Saturday, March 24, 2018 14:25 - CONCLUSION: No acute disease. Tevin Gomez MD Course Initial EKG is sinus rhythm rate of [address] segment depressions or elevations. Caprini VTE Risk Assessment Caprini VTE Risk Assessment: No/Low Risk (score <= 1) Caprini Risk Assessment Model Point Value = 1 Point Value = 2 Point Value = 3 Point Value = 5 Age 41-60 Minor surgery BMI > 25 kg/m2 Swollen legs Varicose veins or History of unexplained or recurrent spontaneous Oral contraceptives or hormone replacement Sepsis (< 1 month) Serious lung disease, including pneumonia (< 1 month) Abnormal pulmonary function Acute myocardial infarction Congestive heart failure (< 1 month) History of inflammatory bowel disease Medical patient at bed rest Age 61-74 Arthroscopic surgery Major open surgery (> 45 min) Laparoscopic surgery (> 45 min) Malignancy Confined to bed (> 72 hours) Immobilizing plaster cast Central venous access Age >= 75 History of VTE Family history of VTE Factor V Leiden Prothrombin [id number] Lupus anticoagulant Anticardiolipin antibodies Elevated serum homocysteine Heparin-induced thrombocytopenia Other congenital or acquired thrombophilia Stroke (< 1 month) Elective arthroplasty Hip, pelvis, or leg fracture Acute spinal cord injury (< 1 month) Prophylaxis Regimen Total Risk Factor Score Risk Level Prophylaxis Regimen 0-1 Low Early ambulation 2 Moderate Order ONE of the following: *Sequential Compression Device (SCD) *Heparin 5000 units SQ BID 3-4 Higher Order ONE of the following medications: *Heparin 5000 units SQ TID *Enoxaparin/Lovenox 40 mg SQ daily (WT < 150 kg, CrCl > 30 mL/min) *Enoxaparin/Lovenox 30 mg SQ daily (WT < 150 kg, CrCl > 10-29 mL/min) *Enoxaparin/Lovenox 30 mg SQ BID (WT < 150 kg, CrCl > 30 mL/min) AND/OR *Sequential Compression Device (SCD) 5 or more Highest Order ONE of the following medications: *Heparin 5000 units SQ TID (Preferred with Epidurals) *Enoxaparin/Lovenox 40 mg SQ daily (WT < 150 kg, CrCl > 30 mL/min) *Enoxaparin/Lovenox 30 mg SQ daily (WT < 150 kg, CrCl > 10-29 mL/min) *Enoxaparin/Lovenox 30 mg SQ BID (WT < 150 kg, CrCl > 30 mL/min) AND *Sequential Compression Device (SCD) Assessment and Plan Assessment and Plan * Chest pain: Her symptoms are atypical. States is similar to her GERD symptoms however she has not been taking Prilosec regularly. Patient will be restarted on PPI. She will have serial cardiac enzymes and EKGs for ruling out purposes. She will be evaluated by Dr. Moore of cardiology and the chest pain center. Patient is refusing aspirin. It upsets her stomach. She states she can take Lortab for pain as needed. States she cannot walk on a treadmill, patient will have a Lexiscan if she rules out. Patient will be discharged home if her stress test is nonischemic with instructions to follow-up with PCP. * GERD: Restart PPI. * State history of diabetes: Patient will be on sliding scale insulin coverage. She should discuss this further with her physician. Also with history of diabetes patient should be on statin therapy. This should also be discussed with her PCP. Patient is stable at this time. She is agreeable to this plan. Reynaldo Patino Mar 24, 2018 16:58
[2018-03-24] MEDS ORDERED: cloNIDine HCL 0.1 MG TAB PO PRN (17:00)
[2018-03-24] MEDS ORDERED: RESP: ALBUTEROL 2.5 MG/IPRATROPIUM 0.5 MG NEB (PRN) INH (17:00)
[2018-03-24] MEDS ORDERED: ACETAMINOPHEN/HYDROcodone 325 MG/5 MG TAB PO PRN (17:00)
[2018-03-24] MEDS ORDERED: ALUMINUM/MAGNESIUM/SIMETH 30 ML CUP PO ONE (17:15)
[2018-03-24] MEDS: PANTOPRAZOLE SOD 40 MG DELAYED RELEASE TAB PO SCH (18:33)
[2018-03-24 18:45] LABS: TROPONIN I LESS THAN 0.02 NG/ML (0.02-0.05)
[2018-03-24] MEDS: SODIUM CHLORIDE 0.9% FLUSH 10 ML FLUSH IV FLUSH SCH (20:26)
[2018-03-24 21:33] LABS: TROPONIN I LESS THAN 0.02 NG/ML (0.02-0.05)
[2018-03-25 00:04] VITALS: BP 121/61; PULSE 82; RESP 16; TEMP 98.5; O2SAT 98
[2018-03-25 03:55] VITALS: BP 118/65; PULSE 80; RESP 17; TEMP 98.5; O2SAT 96
[2018-03-25 07:01] VITALS: PULSE 71
[2018-03-25 07:31] VITALS: BP 126/72; PULSE 69; RESP 16; TEMP 98; O2SAT 95
--- NOTE | 2018-03-25 08:35 | PD.CARD.PN ---
Subjective Subjective Remarks No further complaints overnight. Reports current acid reflux feelings, requesting additional dose of maalox Objective Medications Current Medications Medications (Trade) Dose Ordered Sig/Tyra Route Start Time Stop Time Status Last Admin (NS Flush) 2 ml UNSCH PRN IV FLUSH 03/24/18 16:45 (NS Flush) 2 ml BID IV FLUSH 03/24/18 21:00 03/24/18 20:26 (Zofran Inj) 4 mg Q6H PRN IV PUSH 03/24/18 16:45 ([place] 5-325 Mg) 1 tab Q6H PRN PO 03/24/18 17:00 (Duoneb Neb) 1 ampule Q4HR NEB PRN INH 03/24/18 17:00 ([place]) 0.1 mg Q4H PRN PO 03/24/18 17:00 (Protonix) 40 mg DAILY PO 03/24/18 17:15 03/24/18 18:33 Vital Signs / I&O Vital Signs Date Time Temp Pulse Resp B/P (MAP) Pulse Ox O2 Delivery O2 Flow Rate FiO2 03/25/18 07:31 98.0 69 16 126/72 (90) 95 03/25/18 03:55 98.5 80 17 118/65 (82) 96 03/25/18 00:04 98.5 82 16 121/61 (81) 98 03/24/18 23:00 75 03/24/18 21:40 97 03/24/18 20:31 98.1 80 16 130/74 (92) 97 03/24/18 16:32 98 Room Air 03/24/18 16:10 75 14 146/68 (94) 100 Room Air 03/24/18 13:38 80 18 148/78 (101) 100 Room Air 03/24/18 13:28 98.8 91 20 170/83 (112) 100 Physical Exam GENERAL: Alert WN, WD, NAD, pleasant, -[place] female HEAD: NC, AT CV: RRR, without murmur, rub, gallop, no JVD, S1-S2 no S3-S4. RESP: Clear lungs throughout bilateral, no crackles, wheeze, rhonchi, symmetrical chest rise, nonlabored, able to speak in full sentences EXT: Pulses +2x4, no dependent edema MS: Normal tone x4 extremities, nontender, no obvious deformities, full range of motion NEURO: CN II through CN XII grossly intact, motor strength 5/5 PSYCH: A+O x3, pleasant affect, appropriate speech, mood, insight and judgment SKIN: Normal turgor, normal texture Laboratory Laboratory Tests Test 03/24/18 14:15 03/24/18 18:00 03/24/18 20:19 White Blood Count 7.4 TH/MM3 Red Blood Count 4.51 MIL/MM3 Hemoglobin 13.0 GM/DL Hematocrit 39.7 % Mean Corpuscular Volume 88.0 FL Mean Corpuscular Hemoglobin 28.8 PG Mean Corpuscular Hemoglobin Concent 32.7 % Red Cell Distribution Width 14.1 % Platelet Count 337 TH/MM3 Mean Platelet Volume 7.6 FL Neutrophils (%) (Auto) 67.4 % Lymphocytes (%) (Auto) 23.7 % Monocytes (%) (Auto) 7.6 % Eosinophils (%) (Auto) 1.1 % Basophils (%) (Auto) 0.2 % Neutrophils # (Auto) 5.0 TH/MM3 Lymphocytes # (Auto) 1.8 TH/MM3 Monocytes # (Auto) 0.6 TH/MM3 Eosinophils # (Auto) 0.1 TH/MM3 Basophils # (Auto) 0.0 TH/MM3 CBC Comment DIFF FINAL Differential Comment Prothrombin Time 10.0 SEC Prothromb Time International Ratio 1.0 RATIO Activated Partial Thromboplast Time 25.0 SEC Urine Color LIGHT-YELLOW Urine Turbidity CLEAR Urine pH 6.0 Urine Specific [place] 1.004 Urine Protein NEG mg/dL Urine Glucose (UA) NEG mg/dL Urine Ketones NEG mg/dL Urine Occult Blood NEG Urine Nitrite NEG Urine Bilirubin NEG Urine Urobilinogen LESS THAN 2.0 MG/DL Urine Leukocyte Esterase NEG Urine RBC LESS THAN 1 /hpf Urine WBC 1 /hpf Urine Squamous Epithelial Cells 1 /hpf Urine Bacteria RARE /hpf Microscopic Urinalysis Comment CULT NOT INDICATED Blood Urea Nitrogen 11 MG/DL Creatinine 0.91 MG/DL Random Glucose 135 MG/DL Total Protein 7.4 GM/DL Albumin 3.4 GM/DL Calcium Level 8.4 MG/DL Alkaline Phosphatase 79 U/L Aspartate Amino Transf (AST/SGOT) 19 U/L Alanine Aminotransferase (ALT/SGPT) 26 U/L Total Bilirubin 0.5 MG/DL Sodium Level 142 MEQ/L Potassium Level 3.3 MEQ/L Chloride Level 104 MEQ/L Carbon Dioxide Level 29.4 MEQ/L Anion Gap 9 MEQ/L Estimat Glomerular Filtration Rate 76 ML/MIN Total Creatine Kinase 140 U/L 121 U/L 106 U/L Troponin I LESS THAN 0.02 NG/ML LESS THAN 0.02 NG/ML LESS THAN 0.02 NG/ML Creatine Kinase MB 1.0 NG/ML LESS THAN 0.5 NG/ML Imaging Last 24 hours Impressions Chest X-Ray 03/24/18 5991 Signed Impressions: Service Date/Time: Saturday, March 24, 2018 14:25 - CONCLUSION: No acute disease. Tevin Gomez MD Assessment and Plan Assessment and Plan #1 Chest pain-admit to chest pain center. Ruled out with 3 sets of EKGs, cardiac enzymes, monitor on telemetry overnight. Will be seen and evaluated by Dr. Vaibhav Moore. Most likely proceed with treadmill testing later this morning, patient verbalized she will not complete Lexiscan. Further disposition to follow after assessment by vp genetic. #2 GERD-Maalox 30 ml PO x1 dose now. Discussed in length mechanism of action of omeprazole, Zantac, and use of antacids. Encouraged follow-up with PCP. Salima Campos Mar 25, 2018 08:35
[2018-03-25] MEDS ORDERED: ALUMINUM/MAGNESIUM/SIMETH 30 ML CUP PO ONE (08:45)
[2018-03-25] MEDS: PANTOPRAZOLE SOD 40 MG DELAYED RELEASE TAB PO SCH (09:09)
[2018-03-25] MEDS: SODIUM CHLORIDE 0.9% FLUSH 10 ML FLUSH IV FLUSH SCH (09:10)
--- NOTE | 2018-03-25 12:14 | TR ---
Date Performed: 03/25/2018 Time Performed: 11:30:40 DOCTOR: Vaibhav Moore DRUG LIST: CLINICAL HISTORY: CHEST PAIN REASON FOR TEST: Chest pain REASON FOR ENDING: OBSERVATION: CONCLUSION: Eduardo protocol completed. Stopped sec to exceeding target heart rate and leg fatigue . Maximum LR=670 Target HR Achieved=99.0% Maximum GI=152/82 Total Exercise Time=2:38. No reprod chest discomfort. No ectopy. No st t segment changes to sugg ischemia, st t segments are diagnostic. Kendra l bp response. Fair exercise tolerance. Recovery quick and unremarkable. COMMENTS: Conclusion: Normal treadmill exercise. No evidence of ischemia.
[2018-03-25 12:29] VITALS: BP 115/67; PULSE 85; RESP 16; TEMP 98.2; O2SAT 97
--- NOTE | 2018-03-25 12:31 | HHI.DCPOC ---
Discharge Care Plan Diagnosis: (1) Atypical chest pain (2) GERD (gastroesophageal reflux disease) Goals to Promote Your Health * To prevent worsening of your condition and complications * To maintain your health at the optimal level Directions to Meet Your Goals Take your medications as prescribed Follow your dietary instruction Follow activity as directed Keep your appointments as scheduled Take your immunizations and boosters as scheduled If your symptoms worsen call your PCP, if no PCP go to Urgent Care Center or Emergency Room Smoking is Dangerous to Your Health. Avoid second hand smoke Call the 24-hour hour crisis hotline for domestic abuse at Salima Campos Mar 25, 2018 12:31
--- NOTE | 2018-03-25 14:16 | EKG ---
Date Performed: 03/24/2018 Time Performed: 18:15:15 PTAGE: 58 years EKG: Sinus rhythm MINIMAL VOLTAGE CRITERIA FOR LVH, CONSIDER NORMAL VARIANT BORDERLINE ECG PREVIOUS TRACING : 03/24/2018 13.38 Since previous tracing, no significant change noted DOCTOR: Vaibhav Moore Interpretating Date/Time 03/25/2018 14:14:45
--- NOTE | 2018-03-25 14:16 | EKG ---
Date Performed: 03/24/2018 Time Performed: 20:30:45 PTAGE: 58 years EKG: Sinus rhythm BORDERLINE LEFT AXIS DEVIATION BORDERLINE ECG PREVIOUS TRACING : 03/24/2018 18.15 Since previous tracing, no significant change noted DOCTOR: Vaibhav Moore Interpretating Date/Time 03/25/2018 14:14:26
--- NOTE | 2018-03-25 14:17 | EKG ---
Date Performed: 03/24/2018 Time Performed: 13:38:33 PTAGE: 58 years EKG: Sinus rhythm MARKED LEFT AXIS DEVIATION S1-S2-S3 PATTERN, CONSISTENT WITH PULMONARY DISEASE, RVH, OR NORMAL VARIA NT ABNORMAL ECG PREVIOUS TRACING : 06/01/2017 02.49 Since previous tracing, no significant change noted DOCTOR: Vaibhav Moore Interpretating Date/Time 03/25/2018 14:16:20
== END 2018-03-25 13:13 | disposition home or self-care (01) ==
LOC: NEPC 13:25 → NEDA 16:09 → NEPFCDU 18:30
DX: R07.89 Other chest pain (principal); R61 Generalized hyperhidrosis; R94.31 Abnormal electrocardiogram [ECG] [EKG]; E11.9 Type 2 diabetes mellitus without complications; K21.9 Gastro-esophageal reflux disease without esophagitis; M85.672 Other cyst of bone, left ankle and foot; M79.672 Pain in left foot; G89.29 Other chronic pain; M19.90 Unspecified osteoarthritis, unspecified site
CPT/HCPCS: 71045; 80053; 81001; 82550; 82552; 84484; 85025; 85610; 85730; 93005; 93017; 99285; G0378